=== PATIENT | male | born 1980 | race Caucasian/White ===

== ENCOUNTER 2021-06-03 14:33 | Emergency (ER) | payer SELFPAY ==
[~2021-06-03] VITALS: Ht 177.8 cm; Wt 208.6 kg
[2021-06-03 15:41] LABS: BASOPHILS # (AUTO) 0.1 X10'3 (0-0.2); BASOPHILS % (AUTO) 0.6 % (0-1); EOSINOPHILS # (AUTO) 0.2 X10'3 (0-0.9); EOSINOPHILS % (AUTO) 2.2 % (0-6); HEMATOCRIT 44.4 % (42.0-52.0); HEMOGLOBIN 14.3 g/dl (14.0-17.9); LYMPHOCYTES # (AUTO) 2.1 X10'3 (1.1-4.8); LYMPHOCYTES % (AUTO) 19.6 % (21-51); MEAN CORPUSCULAR HGB CONC 32.3 g/dL (33.0-36.5); MEAN CORPUSCULAR VOLUME 80.7 FL (78-98); MEAN PLATELET VOLUME 8.5 FL (7.4-10.4); MONOCYTES # (AUTO) 0.6 X10'3 (0-0.9); MONOCYTES % (AUTO) 5.4 % (2-12); NEUTROPHILS # (AUTO) 7.6 X10'3 (1.8-7.7); NEUTROPHILS % (AUTO) 72.2 % (42-75); PLATELET COUNT 259 X10'3 (140-440); RED BLOOD COUNT 5.49 X10'6 (4.70-6.10); WHITE BLOOD COUNT 10.6 X10'3 (4.5-11.0)
[2021-06-03 15:59] LABS: ALANINE AMINOTRANSFERASE 51 U/L (12-78); ALBUMIN 3.3 G/DL (3.4-5.0); ALBUMIN/GLOBULIN RATIO 0.8 (1.1-1.5); ALKALINE PHOSPHATASE 60 IU/L (46-116); ANION GAP 6 (8-16); ASPARTATE AMINO TRANSFERASE 18 U/L (10-37); BILIRUBIN,TOTAL 0.5 MG/DL (0.1-1.0); BLOOD UREA NITROGEN 14 MG/DL (7-18); BUN/CREATININE RATIO 13.5 (5.4-32.0); CALCIUM 8.6 MG/DL (8.5-10.1); CHLORIDE 104 MMOL/L (99-107); CREATININE 1.04 MG/DL (0.60-1.10); GLUCOSE 118 MG/DL (70-104); POTASSIUM 4.5 MMOL/L (3.5-5.1); SODIUM 142 MMOL/L (135-145); TOTAL CARBON DIOXIDE 31.8 MMOL/L (24-32); TOTAL PROTEIN 7.5 G/DL (6.4-8.2); eGFR 80 ML/MIN
[2021-06-03 17:03] VITALS: BP 125/80
== END 2021-06-03 18:00 | disposition home or self-care (01) ==
LOC: ER 14:34
DX: R00.2 Palpitations (principal)
CPT/HCPCS: 36415; 71045; 80053; 83880; 84484; 85025; 93005; 99285

== ENCOUNTER 2023-11-13 10:43 | Inpatient (IN) | payer MEDICAID ==
[~2023-11-13] VITALS: Ht 177.8 cm; Wt 245.1 kg
[2023-11-13] VITALS (8 sets, daily range): BP systolic 114–159; BP diastolic 59–65; PULSE 82–95; RESP 14–20; TEMP 98.7–98.8; O2SAT 90–99
[2023-11-13 11:34] LABS: BASOPHILS % (AUTO) 0.4 % (0-1); EOSINOPHILS # (AUTO) 0.2 X10'3 (0-0.9); EOSINOPHILS % (AUTO) 2.3 % (0-6); HEMATOCRIT 39.4 % (42.0-52.0); HEMOGLOBIN 11.9 g/dl (14.0-17.9); LYMPHOCYTES # (AUTO) 1.1 X10'3 (1.1-4.8); LYMPHOCYTES % (AUTO) 14.3 % (21-51); MEAN CORPUSCULAR HEMOGLOBIN 24.2 PG (27.0-31.0); MEAN CORPUSCULAR HGB CONC 30.2 g/dL (33.0-36.5); MEAN CORPUSCULAR VOLUME 80.2 FL (78-98); MEAN PLATELET VOLUME 7.4 FL (7.4-10.4); MONOCYTES # (AUTO) 0.4 X10'3 (0-0.9); MONOCYTES % (AUTO) 5.4 % (2-12); NEUTROPHILS % (AUTO) 77.6 % (42-75); PLATELET COUNT 191 X10'3 (140-440); RED BLOOD COUNT 4.91 X10'6 (4.70-6.10); RED CELL DISTRIBUTION WIDTH 20.2 % (11.5-14.5); WHITE BLOOD COUNT 7.7 X10'3 (4.5-11.0)
[2023-11-13 12:05] LABS: ANISOCYTOSIS 3+; ELLIPTOCYTES FEW; PLATELET ESTIMATE NORMAL
[2023-11-13 12:23] LABS: ALBUMIN 2.7 G/DL (3.4-5.0); ANION GAP 4 (8-16); BLOOD UREA NITROGEN 13 MG/DL (7-18); BUN/CREATININE RATIO 14.9 (10.0-20.0); CALCIUM 8.7 MG/DL (8.5-10.1); CHLORIDE 100 MMOL/L (99-107); CREATININE 0.87 MG/DL (0.60-1.10); GLUCOSE 318 MG/DL (70-104); POTASSIUM 4.6 MMOL/L (3.5-5.1); PRO BRAIN NATRIURETIC PEPTIDE 181 PG/ML (0-125); SODIUM 136 MMOL/L (135-145); TOTAL CARBON DIOXIDE 31.7 MMOL/L (24-32); eCRCL 115 ML/MIN; eGFR > 90 ML/MIN
[2023-11-13] MEDS: acetaminophen 325mg tablet PO ONE (14:00)
[2023-11-13] MEDS: ipratropium/albuterol 3ml nebule NEB STA (14:01)
[2023-11-13] MEDS: ketorolac trometh 30MG/ML vial 30 MG/ML VIAL IM ONE (14:01)
[2023-11-13] MEDS: dexamethasone sod phosphate 10mg/ml inj IM STA (14:01)
[2023-11-13 14:24] LABS: FREE T4 (FREE THYROXINE) 0.85 NG/DL (0.73-1.40); THYROID STIMULATING HORMONE 2.63 ulU/ml (0.34-4.50)
[2023-11-13] MEDS ORDERED: NO HOME MEDS (14:26)
[2023-11-13 15:01] LABS: BILIRUBIN,URINE NEGATIVE (Neg); CLARITY,URINE CLEAR (Clear); COLOR,URINE YELLOW (Yellow); GLUCOSE, URINE 500 mg/dl (Neg); KETONES,URINE NEGATIVE (Neg); LEUKOCYTE ESTERASE ,URINE NEGATIVE (Neg); NITRITES, URINE NEGATIVE (Neg); OCCULT BLOOD,URINE NEGATIVE (Neg); PROTEIN,URINE NEGATIVE (Neg); UROBILINOGEN,URINE 0.2 E.U/dL (0.2-1.0)
[2023-11-13 15:07] LABS: UA COLLECTION TYPE CLN CATCH MIDSTREAM
[2023-11-13] MEDS: normal saline 1000ml 1,000 ML IV ONE (15:15)
[2023-11-13] MEDS ORDERED: ondansetron/PF 4mg/2ml inj IV PRN (15:50)
[2023-11-13] MEDS ORDERED: mag hydrox/Alum hydrox/simeth 30ml oral suspension PO PRN (15:50)
[2023-11-13] MEDS ORDERED: acetaminophen 325mg tablet PO PRN ×2 (15:50)
[2023-11-13] MEDS ORDERED: potassium Cl 40MEQ/1/2NS 520ml 520 ML IV PRN (15:50)
[2023-11-13] MEDS ORDERED: magnesium sulf-water 4G/100mL 100 ML IV PRN (15:50)
[2023-11-13] MEDS ORDERED: magnesium sulf-water 2g/50mL 50 ML IV PRN (15:50)
[2023-11-13] MEDS ORDERED: magnesium Cl slow-release 64mg tablet PO PRN (15:50)
[2023-11-13] MEDS ORDERED: magnesium hydroxide 30ml (MOM) UD suspension PO PRN (15:50)
[2023-11-13] MEDS ORDERED: potassium Cl 20 mEq SR tablet PO PRN ×2 (15:50)
[2023-11-13] MEDS ORDERED: glucagon, human recombinant 1mg kit SUBCUT PRN (16:50)
[2023-11-13] MEDS ORDERED: dextrose 50%-water 50ml dispensing syringe IV PRN ×2 (16:50)
[2023-11-13] MEDS ORDERED: DEXTROSE 15 GM of carb/4 tabs (each vial/BOTTLE has 4 tablets) PO PRN ×2 (16:50)
[2023-11-13 17:01] LABS: % IRON SATURATION 8 % (11-46); IRON 26 UG/DL (53-167); TOTAL IRON BINDING CAPACITY 310 UG/DL (259-388)
[2023-11-13 17:10] LABS: HEMOGLOBIN A1C 10.7 % (4.5-6.2)
[2023-11-13 17:20] LABS: FERRITIN 74 NG/ML (26-388)
[2023-11-13] MEDS: INSULIN LISPRO 100 UNIT/ML INSULN.PEN MULTI-DOSE SQ SCH (18:01)
[2023-11-13] MEDS: albuterol 1.25 MG/3 ML (1/2 strength) nebule NEB SCH (19:00)
[2023-11-13] MEDS: K and/or MAG REPLACEMENT MC SCH (20:00)
[2023-11-13 20:44] LABS: D-DIMER 1.13 MG/L FEU (0-0.50)
[2023-11-13 21:38] LABS: APTT 28 SECONDS (22-32); INR 1.1 INR; PROTHROMBIN TIME 11.1 SECONDS (9.0-12.0)
[2023-11-13] MEDS: ipratropium/albuterol 3ml nebule NEB PRN (21:51)
[2023-11-13] MEDS: iron polysaccharide complex 150mg capsule PO SCH (22:44)
[2023-11-13] MEDS: azithromycin 250mg tablet PO SCH (22:44)
[2023-11-13] MEDS: methylPREDNISolone sod succ 125mg/2ml vial IV ONE (22:48)
[2023-11-13] MEDS: lisinopril 10 MG tablet PO SCH (22:55)
[2023-11-13] MEDS: heparin 10,000 units/1 ML INJ IV ONE (23:00)
[2023-11-13] MEDS: CefTRIAXone/D5W-Rocephin 1gm 50 ML IV SCH (23:24)
[2023-11-13] MEDS: insulin glargine (Lantus) pen - multi-dose SQ SCH (23:28)
[2023-11-13] MEDS: MESSAGE TO NURSING IV ONE (23:31)
[2023-11-13] MEDS: ipratropium/albuterol 3ml nebule NEB SCH (23:41)
[2023-11-13] MEDS: heparin 25,000 UNIT/250ml bag 250 ML IV PRN (23:58)
[2023-11-14] VITALS (19 sets, daily range): BP systolic 101–180; BP diastolic 51–85; PULSE 57–83; RESP 16–29; TEMP 97.5–98.3; O2SAT 89–98
[2023-11-14] MEDS: methylPREDNISolone sod succ 125mg/2ml vial IV SCH
[2023-11-14 00:05] LABS: ABG OXYGEN SATURATION 84.4 % (94.0-98.0); ABG PCO2 (T) 52.8 mmHg (35.0-48.0); ABG PH (T) 7.413 (7.350-7.450); ABG PO2 (T) 49.1 mmHg (83.0-108.0); ALLEN'S TEST POSITIVE; FCOHb 1.6 % (0.5-1.5); FHHb 15.3 % (0.0-5.0); FMetHb 0.3 % (0.0-1.5); FO2Hb 82.8 % (94.0-98.0); MODE ROOM AIR; PATIENT TEMPERATURE 36.8; TOTAL HEMOGLOBIN 12.3 G/dl (13.5-17.5)
[2023-11-14 06:37] LABS: BASOPHILS % (AUTO) 0.2 % (0-1); EOSINOPHILS % (AUTO) 0 % (0-6); HEMATOCRIT 37.7 % (42.0-52.0); HEMOGLOBIN 11.4 g/dl (14.0-17.9); LYMPHOCYTES # (AUTO) 0.9 X10'3 (1.1-4.8); LYMPHOCYTES % (AUTO) 11.8 % (21-51); MEAN CORPUSCULAR HEMOGLOBIN 24.2 PG (27.0-31.0); MEAN CORPUSCULAR HGB CONC 30.1 g/dL (33.0-36.5); MEAN CORPUSCULAR VOLUME 80.5 FL (78-98); MEAN PLATELET VOLUME 7.6 FL (7.4-10.4); MONOCYTES # (AUTO) 0.1 X10'3 (0-0.9); MONOCYTES % (AUTO) 1.1 % (2-12); NEUTROPHILS # (AUTO) 6.6 X10'3 (1.8-7.7); NEUTROPHILS % (AUTO) 86.9 % (42-75); PLATELET COUNT 186 X10'3 (140-440); RED BLOOD COUNT 4.69 X10'6 (4.70-6.10); RED CELL DISTRIBUTION WIDTH 20.1 % (11.5-14.5); WHITE BLOOD COUNT 7.6 X10'3 (4.5-11.0)
[2023-11-14 07:05] LABS: ALANINE AMINOTRANSFERASE 49 U/L (12-78); ALBUMIN 2.6 G/DL (3.4-5.0); ALBUMIN/GLOBULIN RATIO 0.6 (1.1-1.5); ALKALINE PHOSPHATASE 63 IU/L (46-116); ANION GAP 2 (8-16); ASPARTATE AMINO TRANSFERASE 24 U/L (10-37); BILIRUBIN,TOTAL 0.7 MG/DL (0.1-1.0); BLOOD UREA NITROGEN 16 MG/DL (7-18); BUN/CREATININE RATIO 18.8 (10.0-20.0); CALCIUM 8.5 MG/DL (8.5-10.1); CHLORIDE 98 MMOL/L (99-107); CHOL/HDL RATIO 3.4 (0.00-4.99); CHOLESTEROL 141 MG/DL (0-200); CREATININE 0.85 MG/DL (0.60-1.10); GLUCOSE 371 MG/DL (70-104); HDL CHOLESTEROL 42 MG/DL (35-60); LDL CHOLESTEROL 81 MG/DL (50-100); MAGNESIUM 1.9 MG/DL (1.5-2.4); PHOSPHORUS 4.2 MG/DL (2.3-4.5); POTASSIUM 5.4 MMOL/L (3.5-5.1); SODIUM 135 MMOL/L (135-145); TOTAL CARBON DIOXIDE 34.9 MMOL/L (24-32); TOTAL PROTEIN 7.2 G/DL (6.4-8.2); TRIGLYCERIDES 111 MG/DL (20-135); eCRCL 118 ML/MIN; eGFR > 90 ML/MIN
[2023-11-14] MEDS: MESSAGE TO NURSING IV ONE ×3 (07:15→21:40)
[2023-11-14] MEDS: heparin 10,000 units/1 ML INJ IV PRN (07:23)
[2023-11-14 12:19] LABS: URINE AMPHETAMINE SCREEN NEGATIVE (Neg); URINE BARBITUATE SCREEN NEGATIVE (Neg); URINE BENZODIAZEPINES SCREEN NEGATIVE (Neg); URINE CANNABINOID SCREEN NEGATIVE (Neg); URINE COCAINE SCREEN NEGATIVE (Neg); URINE METHADONE SCREEN NEGATIVE (Neg); URINE OPIATE SCREEN NEGATIVE (Neg); URINE PHENCYCLIDINE SCREEN NEGATIVE (Neg)
[2023-11-14] MEDS: INSULIN LISPRO 100 UNIT/ML INSULN.PEN MULTI-DOSE SQ SCH (12:19)
[2023-11-14] MEDS: FERROUS SULFATE 142 MG TABLET.ER (45mg elemental) PO SCH (21:20)
[2023-11-14] MEDS: insulin glargine (Lantus) pen - multi-dose SQ SCH (21:24)
[2023-11-15] VITALS (17 sets, daily range): BP systolic 117–129; BP diastolic 52–58; PULSE 57–90; RESP 14–22; TEMP 97.8–98.1; O2SAT 89–100
[2023-11-15 03:26] LABS: BASOPHILS % (AUTO) 0.1 % (0-1); EOSINOPHILS % (AUTO) 0 % (0-6); HEMATOCRIT 37.3 % (42.0-52.0); LYMPHOCYTES # (AUTO) 0.9 X10'3 (1.1-4.8); LYMPHOCYTES % (AUTO) 10.2 % (21-51); MEAN CORPUSCULAR HEMOGLOBIN 24.5 PG (27.0-31.0); MEAN CORPUSCULAR HGB CONC 30.5 g/dL (33.0-36.5); MEAN CORPUSCULAR VOLUME 80.4 FL (78-98); MEAN PLATELET VOLUME 7.7 FL (7.4-10.4); MONOCYTES # (AUTO) 0.4 X10'3 (0-0.9); MONOCYTES % (AUTO) 4.7 % (2-12); NEUTROPHILS # (AUTO) 7.9 X10'3 (1.8-7.7); PLATELET COUNT 203 X10'3 (140-440); RED BLOOD COUNT 4.64 X10'6 (4.70-6.10); RED CELL DISTRIBUTION WIDTH 20.3 % (11.5-14.5); WHITE BLOOD COUNT 9.2 X10'3 (4.5-11.0)
[2023-11-15 03:42] LABS: ALANINE AMINOTRANSFERASE 47 U/L (12-78); ALBUMIN 2.8 G/DL (3.4-5.0); ALBUMIN/GLOBULIN RATIO 0.6 (1.1-1.5); ALKALINE PHOSPHATASE 58 IU/L (46-116); ANION GAP 4 (8-16); ASPARTATE AMINO TRANSFERASE 13 U/L (10-37); BILIRUBIN,TOTAL 0.6 MG/DL (0.1-1.0); BLOOD UREA NITROGEN 20 MG/DL (7-18); BUN/CREATININE RATIO 21.3 (10.0-20.0); CHLORIDE 95 MMOL/L (99-107); CREATININE 0.94 MG/DL (0.60-1.10); GLUCOSE 390 MG/DL (70-104); PHOSPHORUS 3.5 MG/DL (2.3-4.5); POTASSIUM 5.1 MMOL/L (3.5-5.1); SODIUM 135 MMOL/L (135-145); TOTAL PROTEIN 7.4 G/DL (6.4-8.2); eCRCL 107 ML/MIN; eGFR 88 ML/MIN
[2023-11-15] MEDS: MESSAGE TO NURSING IV ONE ×3 (04:08→17:14)
[2023-11-15 04:26] LABS: HEMOGLOBIN 11.4 g/dl (14.0-17.9)
[2023-11-15 04:37] LABS: ANISOCYTOSIS 3+; HYPOCHROMASIA 1+; PLATELET ESTIMATE NORMAL; POLYCHROMASIA 1+; STOMATOCYTES 2+
[2023-11-15 04:38] LABS: TARGET CELLS FEW
[2023-11-15] MEDS: folic acid/vitamin B complex w/vitamin C 0.8mg tablet PO SCH (07:51)
[2023-11-15] MEDS: lisinopril 5mg tablet PO SCH (07:52)
[2023-11-15] MEDS: INSULIN LISPRO 100 UNIT/ML INSULN.PEN MULTI-DOSE SQ SCH ×2 (12:00→20:45)
[2023-11-15] MEDS ORDERED: DEXTROSE 15 GM of carb/4 tabs (each vial/BOTTLE has 4 tablets) PO PRN ×2 (12:15)
[2023-11-15] MEDS ORDERED: glucagon, human recombinant 1mg kit SUBCUT PRN (12:15)
[2023-11-15] MEDS ORDERED: dextrose 50%-water 50ml dispensing syringe IV PRN ×2 (12:15)
[2023-11-15] MEDS ORDERED: INSULIN LISPRO 100 UNIT/ML INSULN.PEN MULTI-DOSE SQ SCH (17:00)
[2023-11-15] MEDS: insulin glargine (Lantus) pen - multi-dose SQ SCH (20:48)
[2023-11-16] VITALS (18 sets, daily range): BP systolic 114–162; BP diastolic 53–68; PULSE 61–98; RESP 16–22; TEMP 97.6–98.4; O2SAT 89–97
[2023-11-16] MEDS: MESSAGE TO NURSING IV ONE ×3 (03:38→16:37)
[2023-11-16 08:20] LABS: BASOPHILS % (AUTO) 0.2 % (0-1); EOSINOPHILS % (AUTO) 0 % (0-6); LYMPHOCYTES % (AUTO) 10.6 % (21-51); MEAN CORPUSCULAR HEMOGLOBIN 24.3 PG (27.0-31.0); MEAN PLATELET VOLUME 7.9 FL (7.4-10.4); MONOCYTES # (AUTO) 0.3 X10'3 (0-0.9); MONOCYTES % (AUTO) 2.8 % (2-12); NEUTROPHILS # (AUTO) 8.2 X10'3 (1.8-7.7); NEUTROPHILS % (AUTO) 86.4 % (42-75); PLATELET COUNT 206 X10'3 (140-440); RED BLOOD COUNT 4.75 X10'6 (4.70-6.10); RED CELL DISTRIBUTION WIDTH 20.3 % (11.5-14.5); WHITE BLOOD COUNT 9.4 X10'3 (4.5-11.0)
[2023-11-16 08:33] LABS: ALANINE AMINOTRANSFERASE 48 U/L (12-78); ALBUMIN 2.9 G/DL (3.4-5.0); ALBUMIN/GLOBULIN RATIO 0.7 (1.1-1.5); ALKALINE PHOSPHATASE 50 IU/L (46-116); ANION GAP 1 (8-16); ASPARTATE AMINO TRANSFERASE 22 U/L (10-37); BILIRUBIN,TOTAL 0.6 MG/DL (0.1-1.0); BLOOD UREA NITROGEN 23 MG/DL (7-18); BUN/CREATININE RATIO 21.5 (10.0-20.0); CALCIUM 8.7 MG/DL (8.5-10.1); CHLORIDE 93 MMOL/L (99-107); CREATININE 1.07 MG/DL (0.60-1.10); GLUCOSE 382 MG/DL (70-104); MAGNESIUM 2.1 MG/DL (1.5-2.4); PHOSPHORUS 4.4 MG/DL (2.3-4.5); POTASSIUM 5.2 MMOL/L (3.5-5.1); SODIUM 133 MMOL/L (135-145); TOTAL PROTEIN 7.1 G/DL (6.4-8.2); eCRCL 94 ML/MIN; eGFR 76 ML/MIN
[2023-11-16 08:51] LABS: MEAN CORPUSCULAR HGB CONC 31.4 g/dL (33.0-36.5); MEAN CORPUSCULAR VOLUME 78.3 FL (78-98)
[2023-11-16 08:52] LABS: HEMOGLOBIN 11.6 g/dl (14.0-17.9)
[2023-11-16 12:40] LABS: OCCULT BLOOD STOOL NEGATIVE (Neg)
[2023-11-16] MEDS: normal saline 1000ml 1,000 ML IV ONE (13:23)
[2023-11-16] MEDS: methylPREDNISolone sod succ/PF 40mg inj. IV SCH (16:39)
[2023-11-16] MEDS: guaiFENesin ER 600mg tablet PO SCH (17:37)
[2023-11-16] MEDS: INSULIN LISPRO 100 UNIT/ML INSULN.PEN MULTI-DOSE SQ SCH ×2 (18:18→22:09)
[2023-11-16] MEDS ORDERED: INSULIN LISPRO 100 UNIT/ML INSULN.PEN MULTI-DOSE SQ SCH (21:00)
[2023-11-17] VITALS (13 sets, daily range): BP systolic 111–153; BP diastolic 69–75; PULSE 71–96; RESP 16–20; TEMP 97.4–98.5; O2SAT 92–97
[2023-11-17] MEDS: MESSAGE TO NURSING IV ONE ×3 (00:10→15:45)
[2023-11-17 06:37] LABS: BASOPHILS % (AUTO) 0.2 % (0-1); EOSINOPHILS % (AUTO) 0 % (0-6); HEMATOCRIT 35.4 % (42.0-52.0); HEMOGLOBIN 11.1 g/dl (14.0-17.9); LYMPHOCYTES # (AUTO) 1.1 X10'3 (1.1-4.8); LYMPHOCYTES % (AUTO) 12.9 % (21-51); MEAN CORPUSCULAR HEMOGLOBIN 24.9 PG (27.0-31.0); MEAN CORPUSCULAR HGB CONC 31.2 g/dL (33.0-36.5); MEAN CORPUSCULAR VOLUME 79.6 FL (78-98); MONOCYTES # (AUTO) 0.4 X10'3 (0-0.9); MONOCYTES % (AUTO) 4.4 % (2-12); NEUTROPHILS # (AUTO) 6.9 X10'3 (1.8-7.7); NEUTROPHILS % (AUTO) 82.5 % (42-75); PLATELET COUNT 193 X10'3 (140-440); RED BLOOD COUNT 4.45 X10'6 (4.70-6.10); RED CELL DISTRIBUTION WIDTH 20.4 % (11.5-14.5); WHITE BLOOD COUNT 8.3 X10'3 (4.5-11.0)
[2023-11-17 06:44] LABS: ALANINE AMINOTRANSFERASE 68 U/L (12-78); ALBUMIN 2.9 G/DL (3.4-5.0); ALBUMIN/GLOBULIN RATIO 0.7 (1.1-1.5); ALKALINE PHOSPHATASE 46 IU/L (46-116); ANION GAP 2 (8-16); ASPARTATE AMINO TRANSFERASE 40 U/L (10-37); BILIRUBIN,TOTAL 0.8 MG/DL (0.1-1.0); BLOOD UREA NITROGEN 21 MG/DL (7-18); BUN/CREATININE RATIO 21.9 (10.0-20.0); CALCIUM 8.7 MG/DL (8.5-10.1); CHLORIDE 92 MMOL/L (99-107); CREATININE 0.96 MG/DL (0.60-1.10); PHOSPHORUS 3.8 MG/DL (2.3-4.5); POTASSIUM 4.6 MMOL/L (3.5-5.1); SODIUM 132 MMOL/L (135-145); TOTAL CARBON DIOXIDE 38.2 MMOL/L (24-32); TOTAL PROTEIN 6.8 G/DL (6.4-8.2); eCRCL 105 ML/MIN; eGFR 86 ML/MIN
[2023-11-17 06:58] LABS: GLUCOSE 401 MG/DL (70-104)
[2023-11-17 07:41] LABS: PLATELET ESTIMATE NORMAL; TOTAL CELLS COUNTED 100
[2023-11-17 07:42] LABS: ANISOCYTOSIS 3+; MICROCYTOSIS 1+
[2023-11-17] MEDS ORDERED: methylPREDNISolone sod succ/PF 40mg inj. IV SCH (08:00)
[2023-11-17] MEDS: methylPREDNISolone sod succ/PF 40mg inj. IV SCH (08:41)
[2023-11-17] MEDS: INSULIN LISPRO 100 UNIT/ML INSULN.PEN MULTI-DOSE SQ SCH (08:48)
[2023-11-17] MEDS ORDERED: INSULIN LISPRO 100 UNIT/ML INSULN.PEN MULTI-DOSE SQ SCH (12:00)
[2023-11-17] MEDS ORDERED: iohexol 350MG/ML 100ml bottle IV ONE (17:58)
[2023-11-17] MEDS: insulin glargine (Lantus) pen - multi-dose SQ SCH (20:38)
[2023-11-18] VITALS (8 sets, daily range): BP systolic 110–126; BP diastolic 30–50; PULSE 60–95; RESP 16–22; TEMP 97.2–97.4; O2SAT 91–99
[2023-11-18 06:56] LABS: ALANINE AMINOTRANSFERASE 112 U/L (12-78); ALBUMIN/GLOBULIN RATIO 0.8 (1.1-1.5); ALKALINE PHOSPHATASE 43 IU/L (46-116); ANION GAP 0 (8-16); ASPARTATE AMINO TRANSFERASE 56 U/L (10-37); BASOPHILS % (AUTO) 0.1 % (0-1); BILIRUBIN,TOTAL 0.9 MG/DL (0.1-1.0); BLOOD UREA NITROGEN 22 MG/DL (7-18); CALCIUM 8.6 MG/DL (8.5-10.1); CHLORIDE 96 MMOL/L (99-107); CREATININE 1.05 MG/DL (0.60-1.10); EOSINOPHILS % (AUTO) 0 % (0-6); GLUCOSE 238 MG/DL (70-104); HEMATOCRIT 38.4 % (42.0-52.0); HEMOGLOBIN 11.9 g/dl (14.0-17.9); LYMPHOCYTES % (AUTO) 20.1 % (21-51); MEAN CORPUSCULAR HEMOGLOBIN 24.6 PG (27.0-31.0); MEAN CORPUSCULAR HGB CONC 30.9 g/dL (33.0-36.5); MEAN CORPUSCULAR VOLUME 79.7 FL (78-98); MEAN PLATELET VOLUME 7.8 FL (7.4-10.4); MONOCYTES # (AUTO) 0.6 X10'3 (0-0.9); MONOCYTES % (AUTO) 5.6 % (2-12); NEUTROPHILS # (AUTO) 7.2 X10'3 (1.8-7.7); NEUTROPHILS % (AUTO) 74.2 % (42-75); PHOSPHORUS 5.7 MG/DL (2.3-4.5); PLATELET COUNT 216 X10'3 (140-440); RED BLOOD COUNT 4.82 X10'6 (4.70-6.10); RED CELL DISTRIBUTION WIDTH 20.4 % (11.5-14.5); SODIUM 137 MMOL/L (135-145); TOTAL PROTEIN 6.8 G/DL (6.4-8.2); WHITE BLOOD COUNT 9.8 X10'3 (4.5-11.0); eCRCL 96 ML/MIN; eGFR 78 ML/MIN
[2023-11-18] MEDS: methylPREDNISolone sod succ/PF 40mg inj. IV SCH (08:30)
[2023-11-18 08:47] LABS: NUCLEATED RED BLOOD CELLS 3 /100WBC (0-0); TOTAL CELLS COUNTED 100
[2023-11-18] MEDS ORDERED: CEFD300C3 PO ×2 (08:47→11:14)
[2023-11-18] MEDS ORDERED: ADV50250 IH (08:47)
[2023-11-18] MEDS ORDERED: INSU100V9 SQ (08:54)
[2023-11-18] MEDS ORDERED: INSU100V49 SQ (08:54)
[2023-11-18] MEDS ORDERED: LISI5TAB22 PO (08:59)
[2023-11-18] MEDS ORDERED: METF-516 PO (08:59)
[2023-11-18] MEDS ORDERED: FOLI0.8T22 PO (08:59)
[2023-11-18 09:07] LABS: ALBUMIN 2.9 G/DL (3.4-5.0); ANION GAP 3 (8-16); BLOOD UREA NITROGEN 22 MG/DL (7-18); BUN/CREATININE RATIO 21.4 (10.0-20.0); CALCIUM 8.5 MG/DL (8.5-10.1); CHLORIDE 96 MMOL/L (99-107); CREATININE 1.03 MG/DL (0.60-1.10); GLUCOSE 233 MG/DL (70-104); SODIUM 138 MMOL/L (135-145); TOTAL CARBON DIOXIDE 39.4 MMOL/L (24-32); eCRCL 97 ML/MIN; eGFR 80 ML/MIN
[2023-11-18 09:46] LABS: PLATELET ESTIMATE NORMAL
[2023-11-18] MEDS ORDERED: METR-159 PO (11:14)
[2023-11-18] MEDS ORDERED: LISI-643 PO (11:16)
[2023-11-18] MEDS ORDERED: LACT1CAP76 PO (11:17)
[2023-11-18] MEDS ORDERED: PANT-47 PO (11:17)
[2023-11-18] MEDS ORDERED: nystatin 15 GM powder TP SCH (20:00)
== END 2023-11-18 16:33 | disposition home health service (06) | DRG 140 ==
LOC: ER 10:45 → ED HOLD 15:57 → ORTHO 4S 19:55
PROVIDERS: ADMIT Family Medicine; ATTEND Family Medicine
PROC: 5A09357 Assistance with Respiratory Ventilation, Less than 24 Consecutive Hours, Continuous Positive Airway Pressure (ICD-10-PCS; 2023-11-14)
PROC: 5A09357 Assistance with Respiratory Ventilation, Less than 24 Consecutive Hours, Continuous Positive Airway Pressure (ICD-10-PCS; 2023-11-16)
PROC: B32T1ZZ Computerized Tomography (CT Scan) of Left Pulmonary Artery using Low Osmolar Contrast (ICD-10-PCS; principal; 2023-11-17)
PROC: B3201ZZ Computerized Tomography (CT Scan) of Thoracic Aorta using Low Osmolar Contrast (ICD-10-PCS; 2023-11-17)
PROC: B32S1ZZ Computerized Tomography (CT Scan) of Right Pulmonary Artery using Low Osmolar Contrast (ICD-10-PCS; 2023-11-17)
DX: J44.1 Chronic obstructive pulmonary disease with (acute) exacerbation (principal); J96.01 Acute respiratory failure with hypoxia; E66.2 Morbid (severe) obesity with alveolar hypoventilation; Z20.822 Contact with and (suspected) exposure to COVID-19; E87.1 Hypo-osmolality and hyponatremia; D50.8 Other iron deficiency anemias; E11.65 Type 2 diabetes mellitus with hyperglycemia; J44.0 Chronic obstructive pulmonary disease with (acute) lower respiratory infection; J20.9 Acute bronchitis, unspecified; E87.5 Hyperkalemia; Z68.45 Body mass index [BMI] 70 or greater, adult; Z87.891 Personal history of nicotine dependence
CPT/HCPCS: 36415; 36600; 71046; 71275; 80048; 80053; 80061; 80305; 81003; 82272; 82436; 82728; 82803; 82948; 83036; 83540; 83550; 83605; 83735; 83880; 84100; 84132; 84145; 84439; 84443; 84484; 85007; 85008; 85018; 85025; 85379; 85610; 85730; 87040; 87081; 87811; 93005; 93306; 93970; 94640; 94660; 94760; 96372; 97116; 97162; 97530; 99291; A4615; A4649; A6213; A6258; A6449; C1758; G0378; J0696; J1100; J1644; J1815; J1885; J2919; J7030; J7040; Q9967

== ENCOUNTER 2024-08-15 16:15 | Inpatient (IN) | payer MEDICAID ==
[~2024-08-15] VITALS: Ht 180.3 cm; Wt 231.0 kg
[~2024-08-15 16:15] MED LIST: CEFD300C3 PO; FOLI0.8T22 PO; INSU100V9 SQ; LACT1CAP76 PO; LISI-643 PO; METF-516 PO; NO HOME MEDS; PANT-47 PO
[2024-08-15] MEDS ORDERED: LANTUS SQ (16:34)
[2024-08-15] MEDS ORDERED: INSU100I61 SQ (16:34)
--- NOTE | 2024-08-15 16:34 | Physician Documentation ---
History of Present Illness General Chief Complaint: Shortness of Breath Stated Complaint: SOB Time Seen by MD: 16:29 Primary Medical Doctor: No primary care physician History of Present Illness Initial Comments The patient is a 44-year-old male with a history of type 2 diabetes, morbid obesity and asthma/COPD (patient had one other attack in November of last year and was admitted here) who has been short of breath for 1-2 weeks. He is currently reports not taking any medications except for insulin. Medication Reconciliation Allergies: Coded Allergies: No Known Allergies (Unverified , 08/15/24) Scheduled Cefdinir* (Cefdinir*), 1 CAP PO Q12H Folic Acid/Vitamin B Comp W-C (Vickie-Xander Tablet), 1 TAB PO DAILY Insulin Glargine,Hum.rec.anlog (Lantus), 40 UNIT SQ HS Lactobacillus Casei/Folic Acid (Restora Rx Capsule), 1 CAP PO DAILY Lisinopril (Zestril), 1 TAB PO DAILY Metformin HCl (Metformin HCl ER), 1 TAB PO DAILY Pantoprazole Sodium (PROTONIX tablet), 40 MG PO DAILY Miscellaneous Medications Home Med List (No Home Medications), (Reported) Insulin Glargine,Hum.rec.anlog* (Lantus*), SQ, (Reported) Insulin Lispro (Insulin Lispro Kwikpen U-100), SQ, (Reported) Past Medical History Past Medical History: No Pertinent History Past Surgical History: no surgical history Smoking: Quit less than 1 year Alcohol Use: None Drug Use: marijuana, methamphetamine Lives In: Home Review of Systems ROS Constitutional: Denies chills, fatigue, fever, weight gain or weight loss. HEENT: Denies hearing loss, sinus pressure or visual changes. Respiratory: Shortness of breath and wheezing. Cardiovascular: Denies chest pain, pain while walking (claudication), edema or palpitations. Gastrointestinal: Denies abdominal pain, blood in stool, constipation, diarrhea, heartburn, loss of appetite, nausea or vomiting. Genitourinary: Denies painful urination (dysuria), excessive amount of urine (polyuria) or urinary frequency. Metabolic/Endocrine: Denies cold intolerance, heat intolerance, excessive thirst (polydipsia) or excessive hunger (polyphagia). Neurological: Denies dizziness, extremity numbness, extremity weakness, headaches, seizures or tremors. Psychiatric: Denies anxiety or depression. Integumentary: Denies breast discharge, breast lump, hives, mole change(s), rash or skin lesion. Musculoskeletal: Denies back pain, joint pain, joint swelling or neck pain. Hematologic: Denies easily bleeding, easily bruises, lymphedema or issues with blood clots. Immunologic: Denies food allergies or seasonal allergies. Physical Exam Physical Exam Vital Signs: Temperature: 99.0, Source: Temporal, Heart Rate: 115, Respiratory Rate: 18, BP: 149/83, Pulse Oximetry: 80, Weight: 231.000 Physical Exam Physical Exam Vitals and nursing note reviewed. Constitutional: General: Patient is awake, alert, oriented x 4 in no acute distress and well appearing. Speech is clear and lucid. Appearance: Normal appearance. Patient is not ill-appearing, toxic-appearing or diaphoretic. HENT: Head: Normocephalic and atraumatic. Mouth/Throat: Mouth: Mucous membranes are moist. Pharynx: Oropharynx is clear. Eyes: General: No scleral icterus. Extraocular Movements: Extraocular movements intact. Pupils: Pupils are equal, round, and reactive to light. Neck: Supple, no Kernig or Brudzinski sign. Cardiovascular: Rate and Rhythm: Normal rate and regular rhythm. Heart sounds: No murmur heard. Pulmonary: Effort: No respiratory distress. Breath sounds: Bilateral wheezing with poor air entry Abdominal: General: There is no distension. Palpations: There is no fluid wave, hepatomegaly or mass. Tenderness: There is no abdominal tenderness. There is no guarding. Musculoskeletal: General: No swelling or deformity. Skin: Coloration: Skin is not jaundiced. Findings: No erythema or rash. Neurological: Mental Status: Patient is alert. Progress Results/Orders Results/Orders Orders - ALFIE GONZALEZ MD Chest,Single View (08/15/24 16:23) Monitor (08/15/24 16:23) Saline Lock (08/15/24 16:23) Oxygen (08/15/24 16:23) Hs Troponin I W Calculations (08/15/24 18:23) Hs Troponin I W Calculations (08/15/24 19:23) Culture Blood (08/15/24 16:29) Cta Chest Pe (08/15/24 17:37) Completed Orders - ALFIE GONZALEZ MD Chest,Single View (08/15/24 16:23) Cbc/Diff (08/15/24 16:23) PBNP (08/15/24 16:23) Electrocardiogram (08/15/24 16:23) Hs Troponin I W Calculations (08/15/24 16:23) MG (08/15/24 16:29) CMP (08/15/24 16:29) Lacticsepsis (08/15/24 16:29) Ipratropium/Albuterol Nebule (Ipratrop/A (08/15/24 16:30) Methylprednisolone Sod Succ (Solumedrol (08/15/24 16:30) Azithromycin/Ns 500mg/250ml (Zithromax/N (08/15/24 16:30) Medications Received in ER Medications (Trade) Dose Ordered Sig/Ilia Route PRN Reason Start Time Stop Time Status Last Admin Dose Admin (ipratrop/ albuterol 0.5-3(2.5) MG/3ml nebule) 3 ml Q4HRT NEB 08/15/24 16:30 08/15/24 16:52 DC 08/15/24 16:47 3 ML (SoluMEDROL 125mg inj) 125 mg ONCE ONCE IV 08/15/24 16:30 08/15/24 16:32 DC 08/15/24 17:09 125 MG Azithromycin 250 ml @ 250 mls/hr ONCE ONCE IV 08/15/24 16:30 08/15/24 17:29 DC 08/15/24 17:09 250 MLS/HR Vital Signs 08/15/24 08/15/24 08/15/24 08/15/24 16:21 16:28 16:29 16:48 Temp 99.0 Pulse 109 115 103 Resp 26 18 24 B/P (MAP) 159/78 149/83 (105) Pulse Ox 81 87 80 93 O2 Delivery Room Air* Nasal Cannula* O2 Flow Rate 4 FiO2 N/A 36 08/15/24 08/15/24 08/15/24 16:55 17:27 17:35 Pulse 106 106 Resp 18 20 20 B/P (MAP) 135/69 (91) Pulse Ox 93 97 O2 Delivery Nasal Cannula* O2 Flow Rate 5 6.0 FiO2 40 Laboratory Tests Test 08/15/24 16:34 White Blood Count 10.6 Red Blood Count 5.22 Hemoglobin 12.5 L Hematocrit 40.2 L Mean Corpuscular Volume 76.9 L Mean Corpuscular Hemoglobin 24.0 L Mean Corpuscular Hemoglobin Concent 31.2 L Red Cell Distribution Width 19.4 H Platelet Count 274 Mean Platelet Volume 7.7 Neutrophils (%) (Auto) 79.9 H Lymphocytes (%) (Auto) 13.6 L Monocytes (%) (Auto) 4.3 Eosinophils (%) (Auto) 1.4 Basophils (%) (Auto) 0.8 Neutrophils # (Auto) 8.5 H Lymphocytes # (Auto) 1.4 Monocytes # (Auto) 0.5 Eosinophils # (Auto) 0.2 Basophils # (Auto) 0.1 CBC Comment Sodium Level 137 Potassium Level 4.1 Chloride Level 98 L Carbon Dioxide Level 34.9 H Anion Gap 4 L Blood Urea Nitrogen 12 Creatinine 0.93 Estimated GFR/1.73 m2 89 BUN/Creatinine Ratio 12.9 Glucose Level 227 H Lactic Acid Level 2.2 H Calcium Level 8.9 Magnesium Level 1.7 Total Bilirubin 1.1 H Aspartate Amino Transf (AST/SGOT) 41 H Alanine Aminotransferase (ALT/SGPT) 71 Alkaline Phosphatase 77 Troponin I High Sensitivity 8 Pro-B-Type Natriuretic Peptide 68 Total Protein 7.5 Albumin 3.0 L Globulin 4.5 H Albumin/Globulin Ratio 0.7 L Chemistry Comments Medical Decision Making Findings This 44-year-old man with a history of asthma/COPD has been getting progr essively short of breath over the past 1-2 weeks. Currently, he reports taking no medications. His oxygen saturation is about 92% on 4 L oxygen by nasal cannula. I am starting him on DuoNeb, Solu-Medrol and azithromycin. I have also ordered a CTA chest PE study. The patient's care has been transferred to the oncoming physician, Dr. Oliva. Departure Disposition: ADMITTED INPATIENT Impression: Primary Impression: Shortness of breath Condition: Stable Referrals: NO PRIMARY CARE PROVIDER (PCP) Signature Scribe Signature: . Attestation: ALFIE ADAME MD Aug 15, 2024 16:34
--- NOTE | 2024-08-15 16:37 | ELECTROCARDIOGRAPH REPORT ---
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
[2024-08-15 16:47] LABS: MEAN PLATELET VOLUME 7.7 FL (7.4-10.4); RED CELL DISTRIBUTION WIDTH 19.4 % (11.5-14.5)
[2024-08-15] MEDS: ipratropium/albuterol 3ml nebule NEB SCH (16:47)
[2024-08-15 16:48] VITALS: PULSE 103; RESP 24; O2SAT 93
--- NOTE | 2024-08-15 16:53 | RADIOLOGY REPORT ---
CHEST RADIOGRAPH Indication: CP Technique: Single frontal view of the chest was obtained COMPARISON: CHEST,SINGLE VIEW on DOS: 06/03/21 FINDINGS: Lines and Tubes: None Lungs: Clear Pleura: No effusion. No pneumothorax. Cardiomediastinal contours: Moderately severe cardiomegaly, increased since the prior study. Bones: Unremarkable IMPRESSION: 1. Moderately severe cardiomegaly.
[2024-08-15 16:55] VITALS: PULSE 106; RESP 18; O2SAT 93
[2024-08-15 17:09] LABS: CREATININE 0.93 MG/DL (0.60-1.10); TOTAL CARBON DIOXIDE 34.9 MMOL/L (24-32); eCRCL 110 ML/MIN; eGFR 89 ML/MIN
[2024-08-15] MEDS: azithromycin/NS 500mg/250ml 250 ML IV ONE (17:09)
[2024-08-15 17:16] LABS: PRO BRAIN NATRIURETIC PEPTIDE 68 PG/ML (0-125)
--- NOTE | 2024-08-15 18:54 | RADIOLOGY REPORT ---
Indication: Shortness of breath, ABD PAIN Technique: CT axial images of the chest, abdomen and pelvis are obtained with intravenous contrast. Coronal and sagittal reformats were obtained. Radiation Dose Information: CTDI volume is 36 mGy. Dose-length product is 2974 mGy*cm Comparison: None FINDINGS: Insufficient contrast opacification of the pulmonary arteries to evaluate for pulmonary embolism. Rec ommend repeat CT angiogram of the chest. Trachea patent. No pneumothorax. 3 mm right upper lobe pulmonary nodule. Right lower lobe airspace co nsolidation/tree-in-bud nodularity. Heart normal in size. Subcarinal lymph nodes measuring up to 2.5 cm. Pretracheal lymph nodes measurin g up to 2.1 cm. No supraclavicular/axillary lymphadenopathy. Adrenal glands unremarkable. Spleen measures 15 cm AP. Hepatomegaly. Hepatic steatosis. Pancreas unremarkable. The bilateral kidneys demonstrate no hydronephrosis. Gastric distention. Small bowel loops are normal in caliber. Moderate volume stool in the colon. No secondary signs for appendicitis. Abdominal aorta normal in caliber. Bladder distended. No free pelvic fluid. Anterior abdominal wall subcutaneous skin thickening and stranding. [id number] bilateral sacroiliac degenerative joint disease. Mild thoracolumbar degenerative dis c disease. IMPRESSION: Insufficient contrast opacification to evaluate for pulmonary artery embolism. Recommend repeat CT a ngiogram chest. Airspace consolidation/ tree-in-bud nodularity which can be secondary to atypical infection, bronchio litis, aspiration. 3 mm right upper lobe pulmonary nodule. Recommend follow-up per Fleischner society criteria. Mediastinal lymphadenopathy as described. Correlate for infectious, inflammatory, malignant / neoplas tic etiologies. Anterior abdominal wall soft tissues stranding with skin thickening. Correlate for cellulitis and ot her etiologies. Hepatosplenomegaly. Hepatic steatosis. Other findings as described
[2024-08-15 23:10] VITALS: BP 158/83; PULSE 85; RESP 19; TEMP 97.7; O2SAT 91
[2024-08-15 23:10] LABS: LEUKOCYTE ESTERASE ,URINE NEGATIVE (Neg); NITRITES, URINE NEGATIVE (Neg); OCCULT BLOOD,URINE NEGATIVE (Neg)
[2024-08-15 23:15] LABS: UA COLLECTION TYPE CLN CATCH MIDSTREAM
[2024-08-15 23:17] LABS: SQUAMOUS EPITHELIAL CELL,UR FEW /LPF (FEW)
[2024-08-16] VITALS (19 sets, daily range): BP systolic 118–142; BP diastolic 48–69; PULSE 70–87; RESP 12–22; TEMP 97–98.6; O2SAT 90–96
[2024-08-16] MEDS ORDERED: magnesium sulf-water 2g/50mL 50 ML IV PRN (00:30)
[2024-08-16] MEDS ORDERED: ondansetron/PF 4mg/2ml inj IV PRN (00:30)
[2024-08-16] MEDS ORDERED: potassium Cl 20 mEq SR tablet PO PRN ×2 (00:30)
[2024-08-16] MEDS ORDERED: magnesium sulf-water 4G/100mL 100 ML IV PRN (00:30)
[2024-08-16] MEDS ORDERED: magnesium hydroxide 30ml (MOM) UD suspension PO PRN (00:30)
[2024-08-16] MEDS ORDERED: potassium Cl 40MEQ/1/2NS 520ml 520 ML IV PRN (00:30)
[2024-08-16] MEDS ORDERED: magnesium Cl slow-release 64mg tablet PO PRN (00:30)
[2024-08-16] MEDS ORDERED: mag hydrox/Alum hydrox/simeth 30ml oral suspension PO PRN (00:30)
[2024-08-16] MEDS ORDERED: ipratropium/albuterol 3ml nebule NEB PRN (00:45)
--- NOTE | 2024-08-16 00:52 | HISTORY AND PHYSICAL-Residence ---
History & Physical Providers to CC Resident Creating Document: KOBE ESPOSITO, RES CC: OFELIA JOHNSTON MD ~ History of Present Illness Primary Medical Doctor: No primary care physician Reason for Admit\Complaint: SHORTNESS OF BREATHS History of Present Illness A 44-year-old male with past medical history of diabetes mellitus type 2, HTN and obstructive sleep apnea presented to the ED with gradual worsening of shortness of breaths over the last 1.5-2 weeks. Patient was initially not short of breaths and was able to walk comfortably put deteriorated to the point that he could not walk even 10 steps without feeling short of breaths. Patient is usually has oxygen at home which is about 4 L, did not improve with increase in oxygen at home. Patient also complains of fatigue, would fall asleep while driving, orthopnea, PND. Patient endorses cough with yellowish green sputum production, denies fever. Patient uses CPAP at night. Allergies: Coded Allergies: No Known Allergies (Unverified , 08/15/24) Home Medications Home Medications Active PROTONIX tablet (Pantoprazole Sodium) 40 Mg Tablet.dr 40 Mg PO DAILY Restora Rx Capsule (Lactobacillus Casei/Folic Acid) 60 Mg (200 Billion Cell)- 1.25 Mg Capsule 1 Cap PO DAILY 30 Days Zestril (Lisinopril) 10 Mg Tablet 1 Tab PO DAILY 30 Days Cefdinir* (Cefdinir) 300 Mg Capsule 1 Cap PO Q12H 5 Days Metformin HCl ER (Metformin HCl) 500 Mg Tab.er.24 1 Tab PO DAILY 30 Days Vickie-Xander Tablet (Folic Acid/Vitamin B Comp W-C) 0.8 Mg Tablet 1 Tab PO DAILY 30 Days Lantus (Insulin Glargine,Hum.rec.anlog) 100 Unit/Ml Vial 40 Unit SQ HS 30 Days Reported Lantus* (Insulin Glargine) 100 Unit/1 Ml Vial SQ Insulin Lispro Kwikpen U-100 (Insulin Lispro) 100 Unit/Ml Insuln.pen SQ No Home Medications (Home Med List) Each Past Medical History Past Medical History Obstructive sleep apnea Diabetes mellitus type 2 HTN not on any medications at home Past Surgical History Surgical History Comment None Past Social History Social History Comment Smokes two packs of cigarettes per day for the last 20 years, quit six months ago and started vaping No alcohol or marijuana. 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 Smoking: Quit less than 1 year Alcohol Use: None Drug Use: Marijuana, Methamphetamine Lives In: Home ROS ROS All other systems reviewed in full and negative except for the pertinent positives mentioned in the HPI Exam Vitals: Vital Signs Date Time Temp Pulse Resp B/P (MAP) Pulse Ox O2 Delivery O2 Flow Rate FiO2 08/15/24 23:30 79 08/15/24 23:10 97.7 19 158/83 (108) 91 Nasal Cannula 6.0 08/15/24 16:55 40 General: General: Morbidly obese male, Alert, awake, oriented, not in acute distress HEENT: PERRLA, no icterus, pallor, lymphadenopathy, carotid bruit Respiratory system: Bilateral decreased breath sounds, shallow ulcers nonhealing oval in shaped on the chest, multiple CVS: S1-S2 heard, no murmurs/rubs/gallop GI: Soft, nontender, no organomegaly, no guarding/rigidity, bowel sounds present Neuro: No focal neurological deficits present Extremities: 1+ bilateral pitting edema present on bilateral feet Skin: Warm and dry Diagnostic Data Last Recorded Lab Results: 08/15/24 1634 08/15/24 1634 Advance Care Planning Advanced Care plannin - 30 Minutes (I spent 20 minutes discussing various resuscitative measures and the patient decided to be full code) Additional Plan Assessment: 44-year-old male with past medical history of diabetes mellitus type 2, obstructive sleep apnea presented to the ED in view of prior worsening of shortness of breaths over the last 1.52 weeks. Patient is admitted for the evaluation management of acute hypoxemic respiratory failure secondary to COPD exacerbation and evaluation for any new onset heart failure. Plan: Acute hypoxemic respiratory failure 2/2 acute COPD exacerbation Obesity hypoventilation syndrome Can not exclude underlying aspiration pneumonia Chest x-ray: Moderately severe cardiomegaly. CTA chest: 3 mm right upper lobe pulmonary nodule. Right lower lobe airspace consolidation/tree-in-bud nodularity. Pulmonary arteries could not be visualized, recommended follow up CTA. Follow up with D-dimer, flu, sputum culture COVID negative Received one dose of IV Solu-Medrol 125 mg, Solu-Medrol 62.5 q.8h Started on IV Zosyn and azithromycin 500 mg DuoNeb q.4h scheduled and. q.2h p.r.n. Evaluation for new onset heart failure Evaluation for cor pulmonale Previous echo from 12/02: EF: 60-65%, no wall motion abnormalities. RV and LV mildly dilated Follow up with echo Normal proBNP Pulmonary nodule Fleischner criteria: CT at 12 months outpatient Uncontrolled diabetes mellitus type 2 Hyperglycemia A1c: 11.9 On 25 units of Lantus b.i.d., 25 units of short-acting insulin ACHS, high-dose sliding scale insulin Hyperglycemic/hypoglycemic protocol Obesity hypoventilation syndrome CPAP at night Med rec pending Code status: Full code Diet: 60 g carb controlled diet DVT prophylaxis: Heparin 5000 units subcu Disposition: Admit to PCU, follow up with repeat echo Kobe Esposito MD Internal Medicine, PGY 2 Date of Service: Aug 16, 2024 Billing Provider: OFELIA JOHNSTON MD Common Visit Codes: [id number] INP/OBS CARE (HIGH) Assessment/Plan Assessment Evaluated patient with the help of residents. Discussed the case with them. Reviewed notes by Dr. Kobe Esposito MD agree with her assessments and plans. I also reviewed the patient's records.This included patient's notes labs and radiology. CONITNUE THE PRESENT STRATEGIES FOR MANAGEMENTS KOBE ESPOSITO, RES Aug 16, 2024 00:52 OFELIA JOHNSTON MD Aug 16, 2024 06:02
[2024-08-16] MEDS ORDERED: DEXTROSE 15 GM of carb/4 tabs (each vial/BOTTLE has 4 tablets) PO PRN ×2 (00:55)
[2024-08-16] MEDS ORDERED: dextrose 50%-water 50ml dispensing syringe IV PRN ×2 (00:55)
[2024-08-16] MEDS ORDERED: glucagon, human recombinant 1mg kit SUBCUT PRN (00:55)
[2024-08-16] MEDS: ipratropium/albuterol 3ml nebule NEB SCH (02:07)
[2024-08-16] MEDS: insulin glargine (Lantus) pen - multi-dose SQ SCH (02:21)
[2024-08-16] MEDS: insulin glargine (Lantus) pen - multi-dose SQ ONE (02:22)
[2024-08-16] MEDS: HYDROcodone/acetaminophen 5mg/325mg tablet PO PRN (04:39)
[2024-08-16] MEDS: INSULIN LISPRO 100 UNIT/ML INSULN.PEN MULTI-DOSE SQ SCH ×3 (07:00→13:55)
[2024-08-16] MEDS: K and/or MAG REPLACEMENT MC SCH (08:00)
[2024-08-16] MEDS ORDERED: CefTRIAXone 2gm/D5W 50ml BAG 50 ML IV SCH (08:00)
[2024-08-16] MEDS: docusate sod 100mg capsule PO SCH (08:00)
[2024-08-16] MEDS: PERFLUTREN PROTEIN-A MICROSPHR (Optison) 0.22 MG/ML 3ML VIAL IV ONE (08:20)
[2024-08-16] MEDS: heparin, porcine 5000 units/ml vial SQ SCH ×2 (09:02→16:35)
[2024-08-16] MEDS: piperacillin/tazo 3.375gm/50ml 50 ML IV SCH (09:04)
[2024-08-16] MEDS ORDERED: albuterol 2.5 MG/3 ML nebule NEB PRN (12:30)
--- NOTE | 2024-08-16 12:33 | PROGRESS NOTE ---
Daily Progress Note Providers to CC ~ Antibiotic Timeout Antibiotic Ordered?: Yes Subjective No acute events overnight. Patient examined at bedside. No new complaints, not in acute distress. Patient reports sob, denies chest pain, palpitations, abdominal pain, n/v/d. Vss, on 5L O2 via NC, labs unremarkable. 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 Patient is admitted for the evaluation management of acute hypoxemic respiratory failure secondary to COPD exacerbation and evaluation for any new onset heart failure. Assessment Acute hypoxic respiratory failure 2/2 COPD exacerbation Acute COPD exacerbation IDDM, uncontrolled Hyperglycemia Hyperkalemia, mild HTN Class III obesity Obesity hypoventilation syndrome COMFORT -bicarb 35, Chest x-ray shows moderately severe cardiomegaly, CTA chest: 3 mm right upper lobe pulmonary nodule. Right lower lobe airspace consolidation/tree-in-bud nodularity. Echo from 12/02 LVEF: 60-65%, no wall motion abnormalities. pBNP wnl -A1c >12% Plan -bronchodilators, steroid, empirical abx, CPAP at night, one dose Lokelma, Lantus, pre/postprandial; follow lipid panel -f/u repeat CT outpatient for pulmonary module Code status: Full code Diet: carb controlled diet DVT prophylaxis: heparin 5000 units subcu Date of Service: Aug 16, 2024 Billing Provider: BRATOLO CUTLER Common Visit Codes: [id number] INP/OBS CARE(HIGH) BARTOLO CUTLER Aug 16, 2024 12:33
[2024-08-16] MEDS: SODIUM ZIRCONIUM CYCLOSILICATE 10 GM POWD.PACK PO ONE (12:35)
[2024-08-16 13:28] LABS: MEAN PLATELET VOLUME 8.6 FL (7.4-10.4)
[2024-08-16 13:33] LABS: CHOL/HDL RATIO 4.1 (0.00-4.99); CREATININE 0.95 MG/DL (0.60-1.10); LDL CHOLESTEROL 98 MG/DL (50-100); TOTAL CARBON DIOXIDE 28.2 MMOL/L (24-32); eCRCL 108 ML/MIN; eGFR 87 ML/MIN
[2024-08-16 14:16] LABS: RED CELL DISTRIBUTION WIDTH 18.9 % (11.5-14.5)
[2024-08-16 15:24] LABS: BANDS% (MANUAL) 6.0 % (0-10); LYMPHOCYTES % (MANUAL) 8.0 % (21-51); METAMYLEOCYTES% (MANUAL) 3.0 % (0-0); MONOCYTES % (MANUAL) 3.0 % (2-12); NEUTROPHILS % (MANUAL) 80.0 % (42-75)
[2024-08-16 15:25] LABS: NUCLEATED RED BLOOD CELLS 2 /100WBC (0-0); PLATELET ESTIMATE NORMAL
[2024-08-16 15:26] LABS: LARGE PLATELETS FEW
[2024-08-16] MEDS: azithromycin/NS 500mg/250ml 250 ML IV ONE (16:33)
--- NOTE | 2024-08-16 18:13 | CARDIOLOGY REPORT ---
APPROVED REPORT EXAM: Comprehensive 2D, Doppler, and color-flow Echocardiogram. 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 181.0 cm/s AoV VTI 34.6 cm AO Peak GR. 13.1 mmHg AO Mean GR. 7 mmHg LVOT VTI 15.76 cm LVOT Peak Christian. 84.2 cm/s PRISCILLA (VMAX) 2.17 cm2 PRISCILLA (VTI) 2.12 cm2 Mitral Valve MV E Velocity 118.8 cm/s MV DECEL TIME 191 ms MV A Velocity 85.0 cm/s MV PHT 56 ms E/A Ratio 1.4 MVA (PHT) 3.96 cm2 LEFT VENTRICLE Normal LV size and function. Mild concentric hypertrophy. LVEF is 60-65%. RIGHT VENTRICLE Right ventricle is borderline dilated. The right ventricular systolic function is normal. ATRIA Left atrium is moderately dilated. AORTIC VALVE Trileaflet AV appears mildly sclerotic without stenosis. No insufficiency. MITRAL VALVE Mild mitral annular calcification without stenosis. Trace regurgitation. TRICUSPID VALVE The tricuspid valve is normal in structure. No regurgitation. PULMONIC VALVE Pulmonic valve is not well visualized. GREAT VESSELS The aortic root is normal in size. PERICARDIUM Normal pericardium. No effusion. Other Information Study Quality: Technically Limited
[2024-08-17] VITALS (18 sets, daily range): BP systolic 100–132; BP diastolic 45–71; PULSE 68–104; RESP 12–25; TEMP 97–97.6; O2SAT 88–99
[2024-08-17 06:31] LABS: MEAN PLATELET VOLUME 8.0 FL (7.4-10.4); RED CELL DISTRIBUTION WIDTH 20.1 % (11.5-14.5)
[2024-08-17 06:45] LABS: CHOL/HDL RATIO 4.2 (0.00-4.99); CREATININE 1.06 MG/DL (0.60-1.10); LDL CHOLESTEROL 109 MG/DL (50-100); TOTAL CARBON DIOXIDE 34.5 MMOL/L (24-32); eCRCL 97 ML/MIN; eGFR 77 ML/MIN
[2024-08-17] MEDS: azithromycin/NS 500mg/250ml 250 ML IV SCH (08:05)
[2024-08-17] MEDS: insulin glargine (Lantus) pen - multi-dose SQ SCH ×2 (08:09→22:07)
--- NOTE | 2024-08-17 13:45 | RADIOLOGY REPORT ---
CTA Chest with intravenous contrast INDICATION: r/o PE COMPARISON: CT CTA CHEST PE on DOS: 11/17/23 TECHNIQUE: Multidetector spiral CTA of the chest was performed of the chest with intravenous contrast . PULMONARY ANGIOGRAPHY PROTOCOL was utilized using a bolus-tracking technique centered on the main p ulmonary artery. Axial, coronal and sagittal multiplanar and MIP reformats were performed. CONTRAST: Type of contrast: Omni 350 Contrast injected: 100 ml Radiation dose : Chest: CTDI volume is 24 mGy. Dose-length product is 934 mGy*cm The dose indicators for CT are the volume computed Tomography (CT) dose Index (CTDIvol) and the dose Length product (DLP), and are measured in units of mGy and mGy-cm, respectively. These indicators are not patient dose, but values generated from the CT scanner acquisition factors. The report includes radiation exposure data for exposures received during this examination. Findings: Limited by motion. Pulmonary artery: No large central or large segmental pulmonary embolism. Lower neck: Normal thyroid. Lungs: Mild atelectasis/ consolidation in the lung bases. Heart/Vascular Structures: Normal heart size. No pericardial effusion. Lymph Nodes: Mediastinal and hilar lymphadenopathy. Pleura: No pleural effusion or significant pneumothorax. Musculoskeletal: No acute osseous abnormality. Soft tissues: Normal. Upper abdomen: Limited portions of the upper abdomen are unremarkable. IMPRESSION: 1. Limited by motion. No large central pulmonary embolism. 2. Mild atelectasis and consolidation in the lung bases. Mediastinal and hilar lymphadenopathy. Clini abelardo correlation and continued follow-up is recommended. HS:Y
--- NOTE | 2024-08-17 14:36 | PROGRESS NOTE ---
Daily Progress Note Providers to CC ~ Antibiotic Timeout Antibiotic Ordered?: Yes Subjective No acute events overnight. Patient examined at bedside. No new complaints not in acute distress. Patient denies chest pain, sob, palpitations, abdominal pain, n/v/d. Vss, on 3L O2 via NC, labs unremarkable. Continue PT. Objective Vital Signs Date Time Temp Pulse Resp B/P (MAP) Pulse Ox O2 Delivery O2 Flow Rate FiO2 08/17/24 12:15 78 20 Nasal Cannula 3.0 08/17/24 12:07 92 32 08/17/24 06:00 97.0 131/71 (91) Result Diagram: 08/17/24 0542 08/17/24 0542 Physical Exam General: Generalized weakness, A&Ox 3, NAD, morbidly obese HEENT: Normocephalic, PERRLA Neck: Supple, trachea midline, no JVD Chest: Clear to auscultation bilaterally Cardiovascular: RRR, S1&S2 GI: Soft and nontender Extremities: No cyanosis/clubbing/or edema SENIOR TAX ANALYST: CN II-XII intact, no focal deficits Musculoskeletal: No paraspinal muscle tenderness, no muscle spasm Skin: Warm and intact Problem\Assessment\Plan 44-year-old male with past medical history of diabetes mellitus type 2, use of home 4L O2, COMFORT, morbid obesity presented to the ED due to worsening of shortness of breath over the last 1.5 weeks. Patient is admitted for the evaluation management of acute hypoxemic respiratory failure secondary to COPD exacerbation and evaluation for any new onset heart failure. Assessment Acute hypoxic respiratory failure 2/2 COPD exacerbation Acute COPD exacerbation IDDM, uncontrolled Hyperglycemia Hyperkalemia, mild HTN Class III obesity Obesity hypoventilation syndrome COMFORT -bicarb 35, Chest x-ray shows moderately severe cardiomegaly, CTA chest: negative PE, 3 mm right upper lobe pulmonary nodule. Right lower lobe airspace consolidation/tree-in-bud nodularity. Echo from 12/02 LVEF: 60-65%, no wall motion abnormalities. pBNP wnl -A1c >12% Plan -bronchodilators, steroid, empirical abx, CPAP at night, one dose Lokelma, Lantus, pre/postprandial; follow lipid panel -f/u repeat CT outpatient for pulmonary module -08/17: Lantus dose adjusted, continue PT Code status: Full code Diet: carb controlled diet DVT prophylaxis: heparin 5000 units subcu Date of Service: Aug 17, 2024 Billing Provider: BARTOLO CUTLER Common Visit Codes: [id number] INP/OBS CARE(HIGH) BARTOLO CUTLER Aug 17, 2024 14:36
[2024-08-17] MEDS: INSULIN LISPRO 100 UNIT/ML INSULN.PEN MULTI-DOSE SQ SCH (22:06)
[2024-08-18] VITALS (19 sets, daily range): BP systolic 114–130; BP diastolic 45–67; PULSE 62–100; RESP 12–22; TEMP 96.9–97.8; O2SAT 75–99
--- NOTE | 2024-08-18 05:28 | ELECTROCARDIOGRAPH REPORT ---
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 MARLA Mccoy Measurements Intervals [place] Rate: 69 P: 23 DE: 132 QRS: 41 QRSD: 103 T: 45 QT: 403 QTc: 432 Interpretive Statements Sinus rhythm Low voltage, precordial leads ST elevation , inferolaterally? Acute injury Electronically Signed On 08-18-2024 17:27:[address] MARLA Mccoy Please click the below link to view image of tracing.
[2024-08-18 05:53] LABS: HBSAG SCREEN Negative (Negative); HEP B CORE AB, IGM Negative (Negative); HEP B CORE AB, TOT Negative (Negative)
[2024-08-18 06:21] LABS: MEAN PLATELET VOLUME 8.1 FL (7.4-10.4); RED CELL DISTRIBUTION WIDTH 19.5 % (11.5-14.5)
[2024-08-18 06:38] LABS: CREATININE 0.86 MG/DL (0.60-1.10); TOTAL CARBON DIOXIDE 38.7 MMOL/L (24-32); eCRCL 119 ML/MIN; eGFR > 90 ML/MIN
[2024-08-18] MEDS: metoprolol succinate 25mg (24-HOUR) SR. Tablet PO SCH (08:23)
[2024-08-18] MEDS: EMPAGLIFLOZIN 10 MG TABLET PO SCH (08:24)
[2024-08-18] MEDS: insulin glargine (Lantus) pen - multi-dose SQ SCH (08:28)
--- NOTE | 2024-08-18 12:23 | PROGRESS NOTE ---
Daily Progress Note Providers to CC ~ Clark-Non Protocol Clark Indications Met/Not Met: F/C Indications Not Met Antibiotic Timeout Antibiotic Ordered?: Yes Subjective No acute events overnight. Patient examined at bedside. No new complaints not in acute distress. Patient denies chest pain, sob, palpitations, abdominal pain, n/v/d. Vss, on 3L O2 via NC, labs unremarkable. Lantus dose adjusted. Continue PT. Pending rehab. Objective Vital Signs Date Time Temp Pulse Resp B/P (MAP) Pulse Ox O2 Delivery O2 Flow Rate FiO2 08/18/24 12:16 76 18 80 Room Air* 0 21 08/18/24 11:00 97.8 114/57 (76) Result Diagram: 08/18/24 0517 08/18/24 0517 Physical Exam General: Generalized weakness, A&Ox 3, NAD, morbidly obese HEENT: Normocephalic, PERRLA Neck: Supple, trachea midline, no JVD Chest: Clear to auscultation bilaterally Cardiovascular: RRR, S1&S2 GI: Soft and nontender Extremities: No cyanosis/clubbing/or edema PULL THROUGH HOOKER: CN II-XII intact, no focal deficits Musculoskeletal: No paraspinal muscle tenderness, no muscle spasm Skin: Warm and intact Problem\Assessment\Plan 44-year-old male with past medical history of diabetes mellitus type 2, use of home 4L O2, COMFORT, morbid obesity presented to the ED due to worsening of shortness of breath over the last 1.5 weeks. Patient is admitted for the evaluation management of acute hypoxemic respiratory failure secondary to COPD exacerbation and evaluation for any new onset heart failure. Assessment Acute hypoxic respiratory failure 2/2 COPD exacerbation Acute COPD exacerbation IDDM, uncontrolled Hyperglycemia Hyperkalemia, mild HTN Class III obesity Obesity hypoventilation syndrome COMFORT -bicarb 35, Chest x-ray shows moderately severe cardiomegaly, CTA chest: negative PE, 3 mm right upper lobe pulmonary nodule. Right lower lobe airspace consolidation/tree-in-bud nodularity. Echo from 12/02 LVEF: 60-65%, no wall motion abnormalities. pBNP wnl; TTE EF60-65% -A1c >12%, LDL 108 -7/9: pending rehab Plan -bronchodilators, steroid, empirical abx, CPAP at night, one dose Lokelma, Lantus, pre/postprandial, GDMT, statin -f/u repeat CT outpatient for pulmonary module -08/17, 08/18: Lantus dose adjusted, continue PT Code status: Full code DVT/VTE prophylaxis: heparin Date of Service: Aug 18, 2024 Billing Provider: BARTOLO CUTLER Common Visit Codes: [id number] INP/OBS CARE(MOD) BARTOLO CUTLER Aug 18, 2024 12:23
[2024-08-19] VITALS (18 sets, daily range): BP systolic 123–139; BP diastolic 39–74; PULSE 50–80; RESP 14–22; TEMP 96.7–97.9; O2SAT 90–98
[2024-08-19 07:05] LABS: MEAN PLATELET VOLUME 8.5 FL (7.4-10.4)
[2024-08-19 07:16] LABS: CREATININE 1.06 MG/DL (0.60-1.10); eCRCL 97 ML/MIN; eGFR 77 ML/MIN
[2024-08-19 07:22] LABS: TOTAL CARBON DIOXIDE 41.9 MMOL/L (24-32)
[2024-08-19 07:48] LABS: RED CELL DISTRIBUTION WIDTH 19.0 % (11.5-14.5)
[2024-08-19] MEDS: insulin glargine (Lantus) pen - multi-dose SQ SCH (09:04)
[2024-08-19 09:20] LABS: PLATELET ESTIMATE NORMAL
--- NOTE | 2024-08-19 12:15 | PROGRESS NOTE ---
Daily Progress Note Providers to CC ~ Antibiotic Timeout Antibiotic Ordered?: Yes Subjective No acute events overnight. Patient examined at bedside. No new complaints not in acute distress. Patient denies chest pain, sob, palpitations, abdominal pain, n/v/d. Vss, on 5L O2 via NC, labs notable for uptrended bicarb. Lantus dose adjusted. Continuous BiPAP needed. Continue PT. Pending rehab. Objective Vital Signs Date Time Temp Pulse Resp B/P (MAP) Pulse Ox O2 Delivery O2 Flow Rate FiO2 08/19/24 12:08 64 18 Nasal Cannula 5.0 08/19/24 12:00 94 40 08/19/24 06:00 97.3 129/68 (88) Result Diagram: 08/19/24 0554 08/19/24 0554 Physical Exam General: Generalized weakness, A&Ox 3, NAD, morbidly obese HEENT: Normocephalic, PERRLA Neck: Supple, trachea midline, no JVD Chest: Clear to auscultation bilaterally Cardiovascular: RRR, S1&S2 GI: Soft and nontender Extremities: No cyanosis/clubbing/or edema SUPERVISOR HAND WORKERS: CN II-XII intact, no focal deficits Musculoskeletal: No paraspinal muscle tenderness, no muscle spasm Skin: Warm and intact Problem\Assessment\Plan 44-year-old male with past medical history of diabetes mellitus type 2, use of home 4L O2, COMFORT, morbid obesity presented to the ED due to worsening of shortness of breath over the last 1.5 weeks. Patient is admitted for the evaluation management of acute hypoxemic respiratory failure secondary to COPD exacerbation and evaluation for any new onset heart failure. Assessment Acute hypoxic respiratory failure 2/2 COPD exacerbation Acute COPD exacerbation IDDM, uncontrolled Hyperglycemia Hyperkalemia, mild HTN Class III obesity Obesity hypoventilation syndrome COMFORT -bicarb 35, Chest x-ray shows moderately severe cardiomegaly, CTA chest: negative PE, 3 mm right upper lobe pulmonary nodule. Right lower lobe airspace consolidation/tree-in-bud nodularity. Echo from 12/02 LVEF: 60-65%, no wall motion abnormalities. pBNP wnl; TTE EF60-65% -A1c >12%, LDL 108 -08/17: pending rehab -08/19: uptrended bicarb Plan -bronchodilators, steroid, empirical abx, CPAP at night, one dose Lokelma, Lantus, pre/postprandial, GDMT, statin -f/u repeat CT outpatient for pulmonary module -08/17, 08/18: Lantus dose adjusted, continue PT -08/19: continuous BiPAP, follow ABG Code status: Full code DVT/VTE prophylaxis: heparin Date of Service: Aug 19, 2024 Billing Provider: BARTOLO CUTLER Common Visit Codes: [id number] INP/OBS CARE(HIGH) BARTOLO CUTLER Aug 19, 2024 12:15
[2024-08-19 12:48] LABS: ABG BASE EXCESS 11.6 mmol/L (-2.0-3.0); ABG HCO3 40.3 mmol/L (21.0-28.0); ABG OXYGEN SATURATION 92.7 % (94.0-98.0); ABG PCO2 (T) 74.0 mmHg (35.0-48.0); ABG PH (T) 7.354 (7.350-7.450); ABG PO2 (T) 69.8 mmHg (83.0-108.0); ALLEN'S TEST POSITIVE; FCOHb 1.8 % (0.5-1.5); FHHb 7.2 % (0.0-5.0); FIO2 40.0 mmHg/%; FLOW 5 L/min; FMetHb 0.0 % (0.0-1.5); FO2Hb 91.0 % (94.0-98.0); MODE NASAL CANNULA; PATIENT TEMPERATURE 37.0; TOTAL HEMOGLOBIN 13.2 G/dl (13.5-17.5)
[2024-08-20] VITALS (18 sets, daily range): BP systolic 119–133; BP diastolic 46–67; PULSE 58–87; RESP 16–29; TEMP 97–97.8; O2SAT 83–98
[2024-08-20 06:13] LABS: MEAN PLATELET VOLUME 8.2 FL (7.4-10.4)
[2024-08-20 06:35] LABS: CREATININE 1.11 MG/DL (0.60-1.10); TOTAL CARBON DIOXIDE 39.6 MMOL/L (24-32); eCRCL 92 ML/MIN; eGFR 73 ML/MIN
[2024-08-20 07:02] LABS: RED CELL DISTRIBUTION WIDTH 18.8 % (11.5-14.5)
[2024-08-20 07:40] LABS: PLATELET ESTIMATE NORMAL
--- NOTE | 2024-08-20 12:49 | PROGRESS NOTE ---
Daily Progress Note Providers to CC ~ Antibiotic Timeout Antibiotic Ordered?: Yes Subjective No acute events overnight. Patient examined at bedside. No new complaints not in acute distress. Patient denies chest pain, sob, palpitations, abdominal pain, n/v/d. Vss, on 5L O2 via NC, labs notable for slightly downtrended bicarb. ABG compensated respiratory acidosis. Lantus dose adjusted. Continue PT. Pending rehab. Objective Vital Signs Date Time Temp Pulse Resp B/P (MAP) Pulse Ox O2 Delivery O2 Flow Rate FiO2 08/20/24 11:42 77 18 83 Room Air* 0 21 08/20/24 11:00 97.8 129/67 (87) Result Diagram: 08/20/2452708/20/24527 Physical Exam General: Generalized weakness, A&Ox 3, NAD, morbidly obese HEENT: Normocephalic, PERRLA Neck: Supple, trachea midline, no JVD Chest: Clear to auscultation bilaterally Cardiovascular: RRR, S1&S2 GI: Soft and nontender Extremities: No cyanosis/clubbing/or edema PASSENGER TRAIN BRAKER: CN II-XII intact, no focal deficits Musculoskeletal: No paraspinal muscle tenderness, no muscle spasm Skin: Warm and intact Problem\Assessment\Plan 44-year-old male with past medical history of diabetes mellitus type 2, use of home 4L O2, COMFORT, morbid obesity presented to the ED due to worsening of shortness of breath over the last 1.5 weeks. Patient is admitted for the evaluation management of acute hypoxemic respiratory failure secondary to COPD exacerbation and evaluation for any new onset heart failure. Assessment Acute hypoxic respiratory failure 2/2 COPD exacerbation Acute COPD exacerbation IDDM, uncontrolled Hyperglycemia Hyperkalemia, mild HTN Class III obesity Obesity hypoventilation syndrome COMFORT -bicarb 35, Chest x-ray shows moderately severe cardiomegaly, CTA chest: negative PE, 3 mm right upper lobe pulmonary nodule. Right lower lobe airspace consolidation/tree-in-bud nodularity. Echo from 12/02 LVEF: 60-65%, no wall motion abnormalities. pBNP wnl; TTE EF60-65% -A1c >12%, LDL 108 -08/17: pending rehab -08/19: uptrended bicarb -08/20: slightly downtrended bicarb; ABG compensated respiratory acidosis Plan -bronchodilators, steroid, empirical abx, CPAP at night, one dose Lokelma, Lantus, pre/postprandial, GDMT, statin -f/u repeat CT outpatient for pulmonary module -08/17, 08/18: Lantus dose adjusted, continue PT -08/19: continuous BiPAP, follow ABG Code status: Full code DVT/VTE prophylaxis: heparin Date of Service: Aug 20, 2024 Billing Provider: BARTOLO CUTLER Common Visit Codes: [id number] INP/OBS CARE(MOD) BARTOLO CUTLER Aug 20, 2024 12:49
[2024-08-20] MEDS: INSULIN LISPRO 100 UNIT/ML INSULN.PEN MULTI-DOSE SQ ONE (16:54)
[2024-08-20] MEDS: insulin glargine (Lantus) pen - multi-dose SQ SCH (21:50)
[2024-08-21] VITALS (21 sets, daily range): BP systolic 98–127; BP diastolic 47–61; PULSE 50–90; RESP 14–22; TEMP 96.6–98.6; O2SAT 83–98
[2024-08-21 06:05] LABS: CREATININE 0.94 MG/DL (0.60-1.10); TOTAL CARBON DIOXIDE 39.3 MMOL/L (24-32); eCRCL 109 ML/MIN; eGFR 88 ML/MIN
[2024-08-21 06:09] LABS: MEAN PLATELET VOLUME 8.4 FL (7.4-10.4); RED CELL DISTRIBUTION WIDTH 19.4 % (11.5-14.5)
[2024-08-21] MEDS: insulin glargine (Lantus) pen - multi-dose SQ ONE (09:12)
[2024-08-21] MEDS: INSULIN LISPRO 100 UNIT/ML INSULN.PEN MULTI-DOSE SQ SCH (09:13)
--- NOTE | 2024-08-21 09:42 | PROGRESS NOTE ---
Daily Progress Note Providers to CC ~ Antibiotic Timeout Antibiotic Ordered?: Yes Subjective No acute events overnight. Patient examined at bedside. No new complaints not in acute distress. Patient denies chest pain, sob, palpitations, abdominal pain, n/v/d. Vss, on 5L O2 via NC, labs notable for persistent elevation bicarb. Blood cultures resulted negative. ABG compensated respiratory acidosis. Lantus dose adjusted. Continue PT. Pending rehab. Objective Vital Signs Date Time Temp Pulse Resp B/P (MAP) Pulse Ox O2 Delivery O2 Flow Rate FiO2 08/21/24 08:08 66 20 Nasal Cannula 4.0 CPAP 08/21/24 07:57 94 36 08/21/24 02:00 96.6 124/58 (80) Result Diagram: 08/21/2452108/21/24521 Physical Exam General: Generalized weakness, A&Ox 3, NAD, morbidly obese HEENT: Normocephalic, PERRLA Neck: Supple, trachea midline, no JVD Chest: Clear to auscultation bilaterally Cardiovascular: RRR, S1&S2 GI: Soft and nontender Extremities: No cyanosis/clubbing/or edema APPLICATION TECHNICIAN: CN II-XII intact, no focal deficits Musculoskeletal: No paraspinal muscle tenderness, no muscle spasm Skin: Warm and intact Problem\Assessment\Plan 44-year-old male with past medical history of diabetes mellitus type 2, use of home 4L O2, COMFORT, morbid obesity presented to the ED due to worsening of shortness of breath over the last 1.5 weeks. Patient is admitted for the evaluation management of acute hypoxemic respiratory failure secondary to COPD exacerbation and evaluation for any new onset heart failure. Assessment Acute hypoxic respiratory failure 2/2 COPD exacerbation Acute COPD exacerbation Community-acquired pneumonia, Gram-positive and Gram-negative- POA IDDM, uncontrolled Hyperglycemia Hyperkalemia, mild HTN Class III obesity Obesity hypoventilation syndrome COMFORT -bicarb 35, Chest x-ray shows moderately severe cardiomegaly, CTA chest: negative PE, 3 mm right upper lobe pulmonary nodule. Right lower lobe airspace consolidation/tree-in-bud nodularity. Echo from 12/02 LVEF: 60-65%, no wall motion abnormalities. pBNP wnl; TTE EF60-65% -A1c >12%, LDL 108 -08/17: pending rehab -08/19: uptrended bicarb -08/20: slightly downtrended bicarb; ABG compensated respiratory acidosis; Blood cultures resulted negative. Plan -bronchodilators, steroid, empirical abx, CPAP at night, one dose Lokelma, Lantus, pre/postprandial, GDMT, statin -f/u repeat CT outpatient for pulmonary module -08/17, 08/18: Lantus dose adjusted, continue PT -08/19: continuous BiPAP, follow ABG -08/21: pending rehab Code status: Full code DVT/VTE prophylaxis: heparin Date of Service: Aug 21, 2024 Billing Provider: BARTOLO CUTLER Common Visit Codes: [id number] INP/OBS CARE(HIGH) BARTOLO CUTLER Aug 21, 2024 09:42
--- NOTE | 2024-08-21 12:12 | ELECTROCARDIOGRAPH REPORT ---
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 Foreign Silver Measurements Intervals [place] Rate: 56 P: 35 [place]: 149 QRS: 34 QRSD: 101 T: 30 QT: 420 QTc: 406 Interpretive Statements Sinus rhythm Low voltage, precordial leads ST elev, probable normal early repol pattern Electronically Signed On 08-22-2024 6:35:[address] Foreign Silver Please click the below link to view image of tracing.
[2024-08-21] MEDS ORDERED: aminophylline 500mg/20ml vial IV PRN (12:40)
[2024-08-21] MEDS ORDERED: regadenoson 0.4mg/5ml syringe IV PRN (12:40)
[2024-08-21] MEDS ORDERED: metoprolol tartrate 1mg/ml inj IV PRN (12:40)
[2024-08-21] MEDS ORDERED: aminophylline 250mg/10ml inj. IV PRN (12:50)
[2024-08-21] MEDS: insulin glargine (Lantus) pen - multi-dose SQ SCH (19:51)
[2024-08-22] VITALS (22 sets, daily range): BP systolic 103–120; BP diastolic 42–75; PULSE 54–96; RESP 12–25; TEMP 97.2–98.6; O2SAT 82–97
[2024-08-22 08:30] LABS: MEAN PLATELET VOLUME 8.3 FL (7.4-10.4); RED CELL DISTRIBUTION WIDTH 19.4 % (11.5-14.5)
[2024-08-22 08:37] LABS: CREATININE 0.89 MG/DL (0.60-1.10); eCRCL 115 ML/MIN; eGFR > 90 ML/MIN
[2024-08-22 08:40] LABS: TOTAL CARBON DIOXIDE 42.6 MMOL/L (24-32)
[2024-08-22 11:21] LABS: ABG BASE EXCESS 12.7 mmol/L (-2.0-3.0); ABG HCO3 38.9 mmol/L (21.0-28.0); ABG OXYGEN SATURATION 95.3 % (94.0-98.0); ABG PCO2 (T) 54.5 mmHg (35.0-48.0); ABG PH (T) 7.469 (7.350-7.450); ABG PO2 (T) 70.4 mmHg (83.0-108.0); ALLEN'S TEST POSITIVE; FCOHb 2.0 % (0.5-1.5); FHHb 4.6 % (0.0-5.0); FIO2 30.0 mmHg/%; FMetHb 0.1 % (0.0-1.5); FO2Hb 93.3 % (94.0-98.0); MODE MASK - BIPAP; PATIENT TEMPERATURE 36.3; RESPIRATORY RATE 12 b/min; TOTAL HEMOGLOBIN 13.7 G/dl (13.5-17.5)
--- NOTE | 2024-08-22 17:05 | PROGRESS NOTE ---
Daily Progress Note Providers to CC ~ Antibiotic Timeout Antibiotic Ordered?: Yes Subjective No acute events overnight. Patient examined at bedside. No new complaints not in acute distress. Patient denies chest pain, sob, palpitations, abdominal pain, n/v/d. Vss, on 5L O2 via NC, labs notable for persistent elevation bicarb. Repeat ABG shows mild metabolic alkalosis, pCO2 down from prior studies with now overcompensated renal bicarb reabsorption. Lantus dose adjusted. Continue PT. Pending rehab. Objective Vital Signs Date Time Temp Pulse Resp B/P (MAP) Pulse Ox O2 Delivery O2 Flow Rate FiO2 08/22/24 15:19 71 14 Nasal Cannula 5.0 08/22/24 15:11 94 40 08/22/24 15:00 97.3 111/68 (82) Result Diagram: 08/22/24 0757 08/22/24 0757 Physical Exam General: Generalized weakness, A&Ox 3, NAD, morbidly obese HEENT: Normocephalic, PERRLA Neck: Supple, trachea midline, no JVD Chest: Clear to auscultation bilaterally Cardiovascular: RRR, S1&S2 GI: Soft and nontender Extremities: No cyanosis/clubbing/or edema VINEGAR MAKER: CN II-XII intact, no focal deficits Musculoskeletal: No paraspinal muscle tenderness, no muscle spasm Skin: Warm and intact Problem\Assessment\Plan 44-year-old male with past medical history of diabetes mellitus type 2, use of home 4L O2, COMFORT, morbid obesity presented to the ED due to worsening of shortness of breath over the last 1.5 weeks. Patient is admitted for the evaluation management of acute hypoxemic respiratory failure secondary to COPD exacerbation and evaluation for any new onset heart failure. Assessment Acute hypoxic respiratory failure 2/2 COPD exacerbation Acute COPD exacerbation Community-acquired pneumonia, Gram-positive and Gram-negative- POA IDDM, uncontrolled Hyperglycemia Hyperkalemia, mild HTN Class III obesity Obesity hypoventilation syndrome COMFORT -bicarb 35, Chest x-ray shows moderately severe cardiomegaly, CTA chest: negative PE, 3 mm right upper lobe pulmonary nodule. Right lower lobe airspace consolidation/tree-in-bud nodularity. Echo from 12/02 LVEF: 60-65%, no wall motion abnormalities. pBNP wnl; TTE EF60-65% -A1c >12%, LDL 108 -7/9: pending rehab -08/19: uptrended bicarb -08/20: slightly downtrended bicarb; ABG compensated respiratory acidosis; Blood cultures resulted negative. -08/22: Repeat ABG shows mild metabolic alkalosis, pCO2 down from prior studies with now overcompensated renal bicarb reabsorption. Plan -bronchodilators, steroid, empirical abx, CPAP at night, one dose Lokelma, Lantus, pre/postprandial, GDMT, statin -f/u repeat CT outpatient for pulmonary module -08/17, 08/18: Lantus dose adjusted, continue PT -08/19: continuous BiPAP, follow ABG -08/21: pending rehab Code status: Full code DVT/VTE prophylaxis: heparin Date of Service: Aug 22, 2024 Billing Provider: BARTOLO CUTLER Common Visit Codes: [id number] INP/OBS CARE(HIGH) BARTOLO CUTLER Aug 22, 2024 17:04
[2024-08-22] MEDS: insulin glargine (Lantus) pen - multi-dose SQ SCH (19:25)
[2024-08-23] VITALS (15 sets, daily range): BP systolic 97–132; BP diastolic 48–68; PULSE 58–100; RESP 13–19; TEMP 97.3–98.3; O2SAT 87–96
[2024-08-23] MEDS ORDERED: METO-395 PO (13:52)
[2024-08-23] MEDS ORDERED: ACET250T29 PO (13:52)
[2024-08-23] MEDS ORDERED: PRED20TA PO (13:52)
[2024-08-23] MEDS ORDERED: ALBU8HFA PO (13:52)
[2024-08-23] MEDS ORDERED: ATOR40TA PO (13:52)
--- NOTE | 2024-08-23 22:52 | DISCHARGE SUMMARY ---
Discharge Summary Providers to CC ~ Discharge Summary Admission Diagnosis: COPD EXACERBATION, ACUTE HYPOXEMIA Hospital Course DATE OF ADMISSION: 08/15/2024 DATE OF DISCHARGE: 08/23/2024 Discharge Diagnosis\\Comment: Acute hypoxic hypercapnic respiratory failure, acute COPD exacerbationm communi ty-acquired pneumonia Gram-positive and Gram-negative present on admission, insulin-dependent diabetes mellitus uncontrolled, hypertension, obstructive sleep apnea, metabolic alkalosis Operations\\Procedures: None Consultants: None Complications: None Condition on DC: Stable New Medications: Acetazolamide (Acetazolamide) 250 Mg Tablet 1 TAB PO Q12H for 30 Days, #60 TAB 0 Refills albuterol inhaler (Pro-Air Inhaler) 8.5 Gm Inhaler 2 PUFFS PO Q6H PRN for shortness of breath, #1 INH Prednisone* (Prednisone*) 20 Mg Tablet 2 TAB PO DAILY, #15 TAB 2 tabs daily x 5 days - then 1 tab daily x 5 days Atorvastatin Calcium* (Lipitor*) 40 Mg Tablet 1 TAB PO DAILY for 30 Days, #30 TAB Metoprolol Succinate (Metoprolol Succinate) 25 Mg Tab.sr.24h 25 MG PO DAILY, #30 TAB.SR Continued Medications: Insulin Glargine,Hum.rec.anlog (Lantus) 100 Unit/Ml Vial 40 UNIT SQ HS for 30 Days, #12 EACH Insulin Glargine,Hum.rec.anlog* (Lantus*) 100 Unit/1 Ml Vial SQ Insulin Lispro (Insulin Lispro Kwikpen U-100) 100 Unit/Ml Insuln.pen SQ Lactobacillus Casei/Folic Acid (Restora Rx Capsule) 60 Mg (200 Billion Cell)- 1.25 Mg Capsule 1 CAP PO DAILY for 30 Days, #30 CAP 0 Refills Discontinued Medications: Home Med List (No Home Medications) Each Discharge Summary: The patient was admitted by resident physician KOBE Russell, under the supervision of OFELIA Law MD with the following HPI:"A 44-year-old male with past medical history of diabetes mellitus type 2, HTN and obstructive sleep apnea presented to the ED with gradual worsening of shortness of breaths over the last 1.5-2 weeks. Patient was initially not short of breaths and was able to walk comfortably put deteriorated to the point that he could not walk even 10 steps without feeling short of breaths. Patient is usually has oxygen at home which is about 4 L, did not improve with increase in oxygen at home. Patient also complains of fatigue, would fall asleep while driving, orthopnea, PND. Patient endorses cough with yellowish green sputum production, denies fever. Patient uses CPAP at night." Patient was discovered to have hypercapnia on on ABG with a pCO2 of 74.0 on admission this improved with BiPAP 54.5- the patient respiratory failure did improve to the point where he was did well with physical therapy to on the morning of the and had just some mild dyspnea the patient is oxygen saturation was in the low 90s on 2-3 L of oxygen the patient is to be discharged and required oxygen for home the patient did an community-acquired pneumonia and was treated with azithromycin and Rocephin incomplete a course of antibiotics during hospitalization. The patient was discharged with a prescription for ProAir and tapering dose of prednisone 40 mg for five days then 20 mg for five days. The patient is a serum bicarb of 42.6 and was discharged with a p.o. Diamox The patient has a uncontrolled diabetes mellitus in his to continues home dose of Lantus the patient was treated with the hyper and hypoglycemic protocol during hospitalization. Gen. No acute distress alert and oriented 4, morbidly obese Lungs clear to ascultation bilaterally, no wheezes rales or rhonchi appreciated Heart normal sinus rhythm no murmurs rubs or clicks noted Abdomen soft nontender bowel sounds are normoactive Lower extremities no clubbing cyanosis, nor edema appreciated bilaterally The patient felt ready to be discharged and was medically cleared to be discharged on 08/23/2024 The patient was seen and evaluated on day of discharge. Time spent on discharge 40 minutes *Problems/Diagnosis: (1) COPD with acute exacerbation Status: Acute Total Time Spent on D/C: > 30 Minutes Date of Service: Aug 23, 2024 Billing Provider: KIMBER BROWN DO Common Visit Codes: [id number] DISCH DAY >30min KIMBER BROWN DO Aug 23, 2024 22:51
== END 2024-08-23 18:42 | disposition home or self-care (01) | DRG 133 ==
LOC: ER 16:15 → ED HOLD 20:13 → PCU 3S 23:04
PROVIDERS: ADMIT Internal Medicine Critical Care Medicine; ATTEND Nurse Practitioner Family
PROC: 5A09357 Assistance with Respiratory Ventilation, Less than 24 Consecutive Hours, Continuous Positive Airway Pressure (ICD-10-PCS; principal; 2024-08-16)
PROC: 5A09357 Assistance with Respiratory Ventilation, Less than 24 Consecutive Hours, Continuous Positive Airway Pressure (ICD-10-PCS; 2024-08-17)
PROC: 5A09357 Assistance with Respiratory Ventilation, Less than 24 Consecutive Hours, Continuous Positive Airway Pressure (ICD-10-PCS; 2024-08-19)
PROC: 5A09357 Assistance with Respiratory Ventilation, Less than 24 Consecutive Hours, Continuous Positive Airway Pressure (ICD-10-PCS; 2024-08-20)
PROC: 5A09357 Assistance with Respiratory Ventilation, Less than 24 Consecutive Hours, Continuous Positive Airway Pressure (ICD-10-PCS; 2024-08-21)
PROC: 5A09357 Assistance with Respiratory Ventilation, Less than 24 Consecutive Hours, Continuous Positive Airway Pressure (ICD-10-PCS; 2024-08-22)
PROC: 5A09357 Assistance with Respiratory Ventilation, Less than 24 Consecutive Hours, Continuous Positive Airway Pressure (ICD-10-PCS; 2024-08-23)
DX: J96.01 Acute respiratory failure with hypoxia (principal); J15.69 Pneumonia due to other Gram-negative bacteria; E87.3 Alkalosis; J15.9 Unspecified bacterial pneumonia; E66.2 Morbid (severe) obesity with alveolar hypoventilation; E87.29 Other acidosis; J44.0 Chronic obstructive pulmonary disease with (acute) lower respiratory infection; Z20.822 Contact with and (suspected) exposure to COVID-19; E11.65 Type 2 diabetes mellitus with hyperglycemia; R91.1 Solitary pulmonary nodule; E87.5 Hyperkalemia; I10 Essential (primary) hypertension; J96.02 Acute respiratory failure with hypercapnia; J44.1 Chronic obstructive pulmonary disease with (acute) exacerbation; Z79.4 Long term (current) use of insulin; Z79.82 Long term (current) use of aspirin; Z79.899 Other long term (current) drug therapy; Z87.891 Personal history of nicotine dependence; Z68.45 Body mass index [BMI] 70 or greater, adult
CPT/HCPCS: 36415; 36600; 71045; 71275; 74177; 80048; 80053; 80061; 81001; 82803; 82948; 83036; 83605; 83735; 83880; 84484; 85007; 85008; 85018; 85025; 86704; 86705; 87040; 87081; 87340; 87811; 93005; 93306; 94640; 94660; 94760; 96365; 96375; 97110; 97116; 97161; 97530; 99285; A4615; A4620; A6209; A6213; A6258; A6266; A6449; G0378; J0456; J1644; J1815; J2543; J2919; J7030; J7040; Q9967